=== PATIENT | male | born 1995 | race African-American/Black ===

== ENCOUNTER 2018-11-18 17:05 | Emergency (ER) | payer SELFPAY ==
[~2018-11-18] VITALS: Ht 190.5 cm; Wt 82.0 kg
[~2018-11-18 17:05] MED LIST: DOXY100T20 PO; MUPI22OI2 TOP
[2018-11-18 17:08] VITALS: BP 139/79; PULSE 76; RESP 16; Ht 190.5 cm; Wt 82.0 kg
== END 2018-11-18 17:48 | disposition home or self-care (01) ==
LOC: FTE 17:05
DX: L73.9 Follicular disorder, unspecified (principal)
CPT/HCPCS: 99283